=== PATIENT | male | born 1950 | race Caucasian/White ===

== ENCOUNTER 2017-03-05 12:13 | Outpatient (CLI) | payer MEDICARE, MEDICAID ==
[~2017-03-05] VITALS: Ht 177.8 cm; Wt 112.8 kg
--- NOTE | ~2017-03-05 | ECHO ---
Transesophageal Echocardiography Report ([facility]) Demographics Patient Name NOY SOTELO Date of Study 03/05/2017 Patient Number [id number] Visit Number [id number] Date of 1950 Room Number G6399 Gender Male Number Age 66 year(s) Referring Arian Tapia Director Integrated Rebecca Link RVT Physician MD Roxane Braswell MD Physician Interpreting Roxane Braswell Foundation Stage Teacher Physician MD Supervising Ordering Roxane Braswell MD/MLP Physician Nurse Stress Director Cardiac Conclusions Summary LV systolic function is grossly normal. LVEF is about 55%, The left ventricle is mildly dilated . Mildly dilated right ventricle. Mildly reduced right ventricular function. Mild degenerative changes of the MV. Severe MR. There is Grade III athroma in the descending aorta. Moderate echogenic plaque in the thoracic aorta with mobile elements. Procedure Type of Study [facility] procedure Procedure Date Date: 03/05/2017 Start: 01:59 PM Study Location: Inpatient Portable Technical Quality: Adequate visualization Indications:Pulmonary Hypertension: Severe. Appropriate Use Criteria: 9 Patient Status: Routine HR: 75 bpm BP: 111/54 mmHg Allergies - Other:(rocephin). - Morphine. - Other:(yellow dye). - Contrast. - Other:(cleocin). Findings Left Ventricle LV systolic function is grossly normal. LVEF is about 55%, The left ventricle is mildly dilated . Right Ventricle Mildly dilated right ventricle. Mildly reduced right ventricular function. Left Atrium The left atrium is moderately dilated. No left atrial appendage mass. There is no evidence of patent foramen ovale or atrial septal defect by color Doppler. Right Atrium The right atrium is mildly dilated. Mitral Valve Mild degenerative changes of the MV. Severe MR. Aortic Valve The aortic valve is mildly sclerotic. There is no aortic regurgitation by color Doppler. Tricuspid Valve Normal appearing tricuspid valve. Mild tricuspid regurgitation by color Doppler. Pulmonic Valve Normal pulmonic valve structure and function. Miscellaneous The patient was brought to the [facility] lab in the fasting state after informed consent was obtained in the written and verbal format. He was prepped with Lidocaine gel and Cetacaine spray as usual. Bite block was placed by nm. Once adequate anesthesia was obtained with anesthesia guidance with propofol sedation the PSCC probe was placed by me down into the stomach. It was pulled back slightly after a few views were obtained in the transgastric level to the transesophageal position where the majority of the case was carried out. At the end of the case the probe was rotated and withdrawn. Patient tolerated the procedure well. There is Grade III athroma in the descending aorta. Moderate echogenic plaque in the thoracic aorta with mobile elements. Contractility Score LV regional wall motion:(0-Non visualized 1-Normal 2-Hypokinesis 3-Akinesis 4-Dyskinesis 5-Aneurysm) Signature dtt: ARMANDO VARGAS dtd: 03/05/17 2069 Physician Self Edit
--- NOTE | ~2017-03-05 | CATH ---
Cardiac Diagnostic Report Demographics Patient Name DEEPAK Somers Gender Male Date of 1950 Age 66 year(s) Patient Number [id number] Date of Study 03/05/2017 Visit Number [id number] Room Number G6399 [place] [id number] Ht 177.8 cm Wt 112.8 kg Referring Sophie Bautista Lizbet Primary Physician Physician Performing [facility] Secondary Physician Physician Michaelle MARIEE Diagnostic [facility] Assisting Physician Physician Michaelle MARIEE Interventional Physician Curriculum Coordinator Physician Findings and Conclusions Diagnostic Findings and Conclusion 1. Single vessel CAD, prox and mid LAD stents are patent. 2. Moderate CAD in prox and distal RCA 40% and mid Cx 30%. 3. Severe pulmonary hypertension with mean PA 45 mmHg, PASP 74/25 mmHg. 4. Increased PCWP 25 mmhg. 5. PA Sat 47% on 3 L of o2. Diagnostic Recommendations Will present case to [facility] surgical team for consideration for Mitral clip for severe symptomatic MR, NYHA class 2-3. Given his severe pulmonary HTN, he may not be a good candidate. Reiterated impt of being compliant with CPAP. o2 to keep sats > 90%. Patient has history of non compliance with meds and cpap. Patient is usually in wheelchair due to weakness in his legs. Procedure Description The patient was brought to the diagnostic cardiac catheterization-EP laboratory in the fasting, non-sedated state. Informed consent was obtained in the written and verbal form after the risks and benefits were explained. The patient had no further questions and agreed to proceed. The planned puncture-incision site(s) were shaved and prepped with ChloraPrep and draped in the usual sterile manner. Conscious sedation, supplemental oxygen, and pain control medications were delivered by a registered nurse under physician guidance. Surface ECG rhythm, blood pressure measurement, and pulse oximetry were monitored throughout the procedure. Arterial access. The access site was infiltrated with lidocaine. The vessel was entered with the Seldinger technique. A sheath was advanced into the vessel and used for catheter placement. Venous access. The access site was infiltrated with 2% lidocaine. The vessel was entered with the Seldinger technique. A sheath was advanced into the vessel and used for catheter placement. Selective left coronary angiography. A catheter was advanced into the left coronary vessel ostium under Fluoroscopic guidance. Contrast was injected by hand. Images were obtained in multiple projections. Selective right coronary angiography. A catheter was advanced into the right coronary vessel ostium under fluoroscopic guidance. Contrast was injected by hand. Images were obtained in multiple projections. Right heart catheterization. A Dugger Melody catheter was successfully advanced to the right atrium, right ventricle, pulmonary artery, and pulmonary artery wedge position under fluoroscopic guidance. Resting hemodynamics were obtained. Measurements included pressures, arterial and venous oxygen saturation samples, and cardiac output. The Dugger was removed without difficulty. Arterial and Venous hemostasis was achieved. The patient was transferred to [facility] via cart accompanied by a nurse. The patient left the laboratory in stable condition. Diagnostic Cath Status: Elective Procedure Procedure Type Diagnostic procedure:Angiography:, RHC w/Coronary Angio Indications: Pulmonary hypertension, Diabetes, CAD, Hypertension, Dyslipidemia, CHF and COPD. The procedure was explained in detail to the patient. Risks, complications and alternative treatments were reviewed. Written consent was obtained. Medications Reviewed with Patient prior to Procedure. Angiographic Findings Dominance: Right Cardiac Arteries and Lesion Findings LMCA: Normal (0% Stenosis). LAD: Lesion on Dist LAD: Distal subsection.30% stenosis . Comments:Proximal and mid stents patent. Lesion on 1st Dia% stenosis . LCx: Lesion on Mid CX: 30% stenosis . RCA: Lesion on Prox RCA: Proximal subsection.40% stenosis . Lesion on Dist RCA: Distal subsection.40% stenosis . Lesion on R PDA: 10% stenosis . Lesion on 1st RPL: 10% stenosis . Ramus: Small Coronary Tree Procedure Data Procedure Date Date: 03/05/2017Start: 03:00 PMEnd: 04:13 PM Entry Locations - Antegrade Percutaneous access was performed through the Right Antecubital. A 6 Fr sheath was inserted. Hemostasis was successfully obtained using Manual Compression. Closure Comments: Manual pressure held for 15 minutes by Tyler Ba.. - Retrograde Percutaneous access was performed through the Left Radial artery (Primary location). A 6 Fr sheath was inserted. Hemostasis was successfully obtained using Mechanical Compression. Entry Comments: Ultrasound guidance used for radial access.. Closure Comments: 18 ml's of air in Radial band placed by Tyler Cortés. Procedure Medications Order and Administration + + + +-------+ !Time !Medication !Dosage !Route ! + + + +-------+ 03/05/2017 03:22 PM !Fentanyl !50 mcg !I.V. ! + + + +-------+ !03/05/2017 03:25 PM !Radial Verapamil !2.5 mg !I.A. ! + + + +-------+ 03/05/2017 03:28 PM !Versed !1 mg !I.V. ! + + + +-------+ !03/05/2017 03:41 PM !Heparin (ACC_3) !5000 units !I.V. ! + + + +-------+ !03/05/2017 03:55 PM !Fentanyl !50 mcg !I.V. ! + + + +-------+ Devices Used - A6 Fr. Balloon Wedge Catheterwas used for:Right heart cath. - A5 Fr. BS JR 4 Diag. Catheterwas used for:Right coronary angiography. - A5 Fr. BS JL 3.5 Diag. Catheterwas used for:Left coronary angiography. Contrast Material - Isovue 70070 ml Fluoroscopy Time: Diagnostic: 8:06 minutes. Total: 8:06 minutes. Fluoroscopy Dose: Diagnostic: 1137 mGy. Total: 1137 mGy. Estimated Blood Loss: 20 ml. Medical History Performed Procedures and Imaging Results - No ACC stress or imaging studies were performed. History of Disease + + + + !Diagnosis !Date !Comments ! + + + + !Hypertension ! ! ! + + + + !Diabetes ! ! ! + + + + Allergies - Other:(rocephin). - Morphine. - Other:(yellow dye). - Contrast. - Other:(cleocin). Risk Factors The patient risk factors include:prior PCI;peripheral arterial disease, hypercholesterolemia, treated hypertension, insulin-treated diabetes mellitus, chronic lung disease, last creatinine: 1.2 mg/dl, creatinine clearance: 95.31 ml/min, dyslipidemia, former tobacco use and prior heart failure . Admission Data Admission Date: 03/05/2017 Admission Time: 12:13 PM Admit Source: Other Insurance Payors: Medicare. Admission Medications + +------+-------+ + + + + !Medication!Dosage!Times !Last !Last !Administered !Comments ! ! ! !Per Day!Delivery !Delivery ! ! ! ! ! ! !Date !Time ! ! ! + +------+-------+ + + + + !Aspirin ! ! ! ! !Yes ! ! !(any) ! ! ! ! ! ! ! + +------+-------+ + + + + !Warfarin ! ! ! ! !Yes ! ! + +------+-------+ + + + + Clinical Evaluation Leading to Procedure - There were no CAD presentation symptoms. - There were no anginal symptoms. Anti-anginal medications were prescribed during the past two weeks. The medication is: Ca channel Blockers. - The patient has been in a state of heart failure within the past two weeks. - The patient's heart failure status was assessed as NYHA Class III, with CHF symptoms of VALLECILLO. Hemodynamics Condition: Rest O2 Consumption: Estimated: 250.82Heart Rate: 52 bpm Oxygen Saturation +--------+-----+----+ +----+ + !Location!pCO2 !pO2 !% Saturation !Hgb !O2 Content ! +--------+-----+----+ +----+ + !RA ! ! !49.7 !12.2! ! +--------+-----+----+ +----+ + !PA ! ! !47.8 !12.2! ! +--------+-----+----+ +----+ + !AO ! ! !90.7 !12.2! ! +--------+-----+----+ +----+ + Pressures (mmHg) +-----+ + !Site !Pressure ! +-----+ + !PA !/ (44) ! +-----+ + !PCW ! () ! +-----+ + !RV !/ ,17 ! +-----+ + !RA ! (18) ! +-----+ + !AO !132/56 (81) ! +-----+ + Cardiac Output +------+ + + + !Method!CO (l/min) !CI (l/min/m2) !SV (ml) ! +------+ + + + !Frantz !3.52 !1.5 !67.41 ! +------+ + + + Shunts Oxygen Values O2 Capacity 164.56 O2 Consumption 250.82 Flows (l/min) Qs 3.69 Qe/Qp 1.05 Qp 3.52 Qp/Qs 0.95 Qe 3.69 Vascular Resistance (dynes x sec x cm-5) + +-----+-----+-----+----+---------+-------+ !CO method !TSVR !SVR !TPVR !PVR !TPVR/TSVR!PVR/SVR! + +-----+-----+-----+----+---------+-------+ !Frantz !23.04!17.94!12.37!5.25!0.54 !0.29 ! + +-----+-----+-----+----+---------+-------+ !Qp or Qs !21.98!17.12!12.37!5.25!0.56 !0.31 ! + +-----+-----+-----+----+---------+-------+ Discharge Data Discharge Date: 03/05/2017 Hospital Status: Outpatient Signatures dtt: MICHAELLE VARGAS dtd: 03/05/17 Janae Physician Self Edit
[~2017-03-05 12:13] MED LIST: **HUMALOG*100 UNIT/M SUB-Q; ALBUTEROL2.5 MG/0.5 INH; AMBIEN5 MG PO; AMITRIPTYLINE H25 MG PO; ASPIRIN LO-DOSE81 MG PO; ATIVAN 0.5MG0.5 MG PO; ATROVENT I0.5 MG/2.5 INH; AZELASTINE137 MCG/0. NOSE; BUMETANIDE2 MG PO; BUSPIRONE HCL15 MG PO; CARDIZEM CD (T240 MG PO; CARDIZEM30 MG PO; CHLORASEPTIC SP1 BOT PO; COLACE100 MG PO; CORDARONE,PACE200 MG PO; COUMADIN ** IA3 MG PO; COUMADIN **IA10 MG PO; COUMADIN **IA7.5 MG PO; COUMADIN6 MG PO; CPAP; DELTASONE10 MG PO; DURAGESIC 100100 MCG TOP; DURAGESIC 75MC75 MCG TOP; EFFEXOR XR75 MG PO; FEOSOL325 MG PO; FLONASE 50 MCG/16 GM NOSE; FLORASTOR250 MG PO; GLUCOSE4 GM PO; HUMALOG100 UNIT/1 SUB-Q; HUMALOG100 UNIT/3 SUB-Q; HYDROCODON-ACE1 EAC6 PO; LANOXIN PO; LANTUS SOL100 UNIT/1 SUB-Q; LASIX40 MG PO; LASIX80 MG PO; LEVAQUIN 750 M750 MG PO; LEVOTHYROXINE125 MCG PO; LIPITOR80 MG PO; LOTRIMIN30 GM; LOTRIMIN30 GM TOP; MELATONIN5 M2 PO; MIRALAX17 GM PO; MULTI VITAMIN1 EACH PO; MULTIVITAMINS1 EAC2 PO; NEURONTIN300 MG PO; NEURONTIN600 MG PO; NICODERM / HABIT7 MG TRANS; NICODERM/HABITR21 MG TRANS; OMEPRAZOLE20 MG PO; OXYGEN M-15 INH; PATANOL 0.1% DR0.1 % OPHTH; PERCOCET 5-3251 EACH PO; POTASSIUM CHLO20 ME1 PO; PREDNISONE10 MG PO; REFRESH TEARS15 ML OPHTH; SINGULAIR10 MG PO; SPIRIVA18 MCG INH; SPIRONOLACTONE25 MG PO; SYMBICORT 16010.2 GM INH; TOUJEO SOL300 UNIT/1 SUB-Q; TYLENOL325 MG PO; ZAROXOLYN2.5 MG PO; ZOCOR20 MG PO
[2017-03-05 12:42] LABS: BASOPHIL # 0.1 K/uL (0.0-0.2); BASOPHIL % 0.5 %; EOSINOPHIL # 0.2 K/uL (0.0-0.5); EOSINOPHIL % 1.9 %; HEMATOCRIT 37.2 % (37.0-53.0); HEMOGLOBIN 12.1 g/dL (11.0-16.0); IMMATURE GRANULOCYTE % 0.4 %; LYMPHOCYTE # 0.9 K/uL (0.8-4.0); LYMPHOCYTE % 9.3 %; MCH 27.9 pg (27.0-34.0); MCHC 32.5 gm/dL (32.0-36.5); MCV 85.7 fl (83.0-98.0); MONOCYTE # 0.7 K/uL (0.0-1.0); MONOCYTE % 7.4 %; MPV 9.1 fl (9.4-12.4); NEUTROPHIL # (ANC) 7.7 K/uL (1.4-9.0); NEUTROPHIL % 80.5 %; NRBC % 0 /100WBC (0-0.00); PLATELET COUNT 242 K/uL (150-450); RBC 4.34 M/uL (3.50-5.50); RDW-CV 18.2 % (11.9-14.6); WBC 9.6 K/uL (4.0-11.0)
[2017-03-05 12:49] LABS: PTT 38 SECONDS (25-32)
[2017-03-05 13:01] LABS: ALBUMIN 3.4 gm/dL (3.5-5.0); ANION GAP 12.6 (10.0-19.0); CALCIUM 9.1 mg/dL (8.5-10.5); CREATININE 1.2 mg/dL (0.6-1.3); POTASSIUM 3.6 mMol/L (3.7-5.1); TOTAL PROTEIN 8.8 g/dL (6.0-8.4)
== END 2017-03-05 18:50 | disposition disaster alternative care site (69) ==
LOC: GPOC 12:13 → GPCU 12:13 → GPOC 18:50
PROVIDERS: Internal Medicine Interventional Cardiology
PROC: 4A023N6 Measurement of Cardiac Sampling and Pressure, Right Heart, Percutaneous Approach (ICD-10-PCS; principal; 2017-03-05)
PROC: B216YZZ Fluoroscopy of Right and Left Heart using Other Contrast (ICD-10-PCS; 2017-03-05)
DX: I34.0 Nonrheumatic mitral (valve) insufficiency (principal); I27.2 Other secondary pulmonary hypertension; I48.91 Unspecified atrial fibrillation; I51.7 Cardiomegaly; I70.0 Atherosclerosis of aorta; R06.09 Other forms of dyspnea; R06.02 Shortness of breath; R94.31 Abnormal electrocardiogram [ECG] [EKG]; Z79.899 Other long term (current) drug therapy
CPT/HCPCS: C1769; C1894; J1200; J1644; J2001; J2250; J2930; J3010; J7030